=== PATIENT | female | born 1965 | race Caucasian/White ===

== ENCOUNTER 2019-08-03 09:45 | Emergency (ER) | payer OTHER, SELFPAY ==
--- NOTE | ~2019-08-03 | XR_ITS ---
XR foot LT min 3V DATE: 08/03/2019 10:06 INDICATION: Fall. Dorsal left foot pain. TECHNIQUE: 4 views COMPARISON: None FINDINGS: Prominent plantar and posterior calcaneal enthesopathy. No fracture, dislocation, periosteal reaction or bone destruction is detected. IMPRESSION: No fracture or dislocation Plantar and posterior calcaneal enthesopathy Reviewed, dictated and finalized at location A.
[2019-08-03 09:58] VITALS: BP 147/74; PULSE 81; RESP 16; TEMP 36.9; O2SAT 100
--- NOTE | 2019-08-03 10:05 | ED.LOWEXIN ---
HPI - Extremity Injury (Lower) General Chief Complaint: Extremity Injury, Lower Stated Complaint: left foot pain Time Seen by Provider: 08/03/19 10:07 Source: patient and RN notes reviewed Mode of arrival: ambulatory Limitations: no limitations History of Present Illness HPI Narrative: This is a 53 years old female presented office for evaluation of left foot injury since yesterday. She accidentally rolled her feet and fell of a few step. She tried to catch herself from falling with the side railing but she still fell onto her left buttock. Complains of left foot pain and worse with weight bearing. States, she had intermittent tingling and numbness due to her neuropathy, which sometimes result in unsteady gait. Denied dizziness or lightheaded prior to arrival. She has try to rest and [id number] Tylenol for her foot pain. Denies head injury. Related Data Home Medications Medication Instructions Recorded Confirmed Flexeril 10 mg PO DAILY 08/03/19 bupropion HCl [Wellbutrin XL] 300 mg PO DAILY 08/03/19 08/03/19 esomeprazole magnesium [Nexium] 40 mg PO DAILY 08/03/19 08/03/19 etanercept [Enbrel] 50 mg SUBCUT WEEKLY 08/03/19 08/03/19 fenofibrate nanocrystallized 48 mg PO DAILY 08/03/19 08/03/19 fluoxetine [Prozac] 40 mg PO DAILY 08/03/19 08/03/19 gabapentin [Neurontin] 300 mg PO TID 08/03/19 08/03/19 hydroxychloroquine [Plaquenil] 200 mg PO DAILY 08/03/19 08/03/19 leflunomide [Arava] 20 mg PO DAILY 08/03/19 08/03/19 montelukast [Singulair] 10 mg PO DAILY 08/03/19 08/03/19 trazodone 50 mg PO DAILY 08/03/19 08/03/19 Allergies Allergy/AdvReac Type Severity Reaction Status Date / Time No Known Allergies Allergy Verified 08/03/19 10:02 Review of Systems Review of Systems: Narrative: CONSTITUTIONAL: Denies fever or feeling ill ENT: Denies congestion CARDIOVASCULAR: Denies chest pain RESPIRATORY: Denies dyspnea GASTROINTESTINAL: Denies nausea, vomiting SKIN: Reports a bruising to her left upper arm from graping the railing. MUSCULOSKELETAL: Reports left foot pain NEUROLOGIC: Denies lightheaded/dizziness prior to accident PMFSH Past Medical History Medical History (Updated 08/03/19 @ 10:24 by ELISABET Pena) Anxiety and depression History of chronic back pain HTN (hypertension) Neuropathy Sleep apnea use CPAP Surgical History Surgical History (Updated 08/03/19 @ 10:08 by ELISABET Pena) Hx of appendectomy Hx of cholecystectomy Social History Social History Gender identity (if verbalized by the patient): Female Comments At time of signature, I agree with nursing past medical, surgical, social and family history. There is no relevant family history pertinent to the presenting complaint. Exam Narrative: Exam Narrative: GENERAL: This is a well-nourished, well-developed patient, in no apparent distress. CARDIOVASCULAR: Regular rate and rhythm without murmurs, gallops, or rubs. RESPIRATORY: Clear to auscultation. Breath sounds equal bilaterally. No wheezes, rales, or rhonchi. GASTROINTESTINAL: Abdomen soft, non-tender, nondistended. Bowel sounds are active. No guarding. SKIN: left bicep noted ecchymosis with slight tenderness to palpation, no obvious skin abrasion. NEURO: awake, alert, and oriented to person, place and time. There were no obvious focal neurologic abnormalities. EXTREMITIES: Upper extremity with normal range of motion. Affected lateral ankle not swollen but there is tenderness without swelling over the dorsum of the foot. Range of motion limited secondary to pain. No deformity. The skin is intact. Course Vital Signs Vital signs: Vital Signs Temperature 98.4 F 08/03/19 09:58 Pulse Rate 81 08/03/19 09:58 Respiratory Rate 16 08/03/19 09:58 Blood Pressure 147/74 H 08/03/19 09:58 Pulse Oximetry 100 08/03/19 09:58 Temperature 98.4 F 08/03/19 09:58 Pulse Rate 81 08/03/19 09:58 Respiratory Ra
== END 2019-08-03 10:26 | disposition home or self-care (01) ==
PROVIDERS: Emergency Provider Nurse Practitioner; PCP Family Medicine
DX: S93.602A Unspecified sprain of left foot, initial encounter (principal); I10 Essential (primary) hypertension; F41.9 Anxiety disorder, unspecified; F32.9 Major depressive disorder, single episode, unspecified; G47.30 Sleep apnea, unspecified; G62.9 Polyneuropathy, unspecified
CPT/HCPCS: 73630; 99213; G0463